=== PATIENT | female | born 1975 | race Caucasian/White ===

== ENCOUNTER 2021-08-07 14:42 | Emergency (ER) | payer MEDICAID, OTHER ==
[~2021-08-07] VITALS: Ht 157.5 cm; Wt 56.2 kg
[2021-08-07 14:56] VITALS: BP 181/108
--- NOTE | 2021-08-07 15:02 | NUR ---
PT TO LOBBY.
[2021-08-07] MEDS ORDERED: CYCLOBENZAPRINE 10 MG TAB PO ONE (15:10)
[2021-08-07] MEDS ORDERED: KETOROLAC 30 MG/ML VIAL IM ONE (15:10)
[2021-08-07] MEDS ORDERED: NAPR-54 PO (15:55)
[2021-08-07] MEDS ORDERED: CYCL-711 PO (15:55)
--- NOTE | 2021-08-07 16:10 | NUR ---
Patient discharged with v/s stable. Written and verbal after care instructions given and explained. Patient verbalized understanding. Ambulatory with steady gait. All questions addressed prior to discharge. Advised to follow up with PMD.
== END 2021-08-07 16:10 | disposition home or self-care (01) ==
LOC: MED 14:42
DX: M25.511 Pain in right shoulder (principal); V89.2XXA Person injured in unspecified motor-vehicle accident, traffic, initial encounter; Y93.89 Activity, other specified; Y92.488 Other paved roadways as the place of occurrence of the external cause; Y99.8 Other external cause status
CPT/HCPCS: 71045; 96372; 99283; J1885

== ENCOUNTER 2023-01-09 20:17 | Emergency (ER) | payer BC, OTHER ==
[~2023-01-09] VITALS: Ht 157.5 cm; Wt 59.0 kg
[~2023-01-09 20:17] MED LIST: CYCL-711 PO; NAPR-54 PO
[2023-01-09 20:37] VITALS: BP 152/77; PULSE 68; RESP 16; TEMP 97.6; O2SAT 99
--- NOTE | 2023-01-09 20:48 | NUR ---
TO BED 12 FOLLOWING TRIAGE AFTER OBTAINING UA
[2023-01-09] MEDS ORDERED: HYDROcodone/APAP 5/325 MG 1 TAB TAB PO ONE (23:15)
[2023-01-09 23:39] LABS: BASOPHILS % (AUTO) 0.6 % (0.0-2.0); EOSINOPHILS # (AUTO) 0.2 K/uL (0-0.4); EOSINOPHILS % (AUTO) 2.3 % (0.0-4.0); HEMATOCRIT 39.9 % (36-48); HEMOGLOBIN 13.7 g/dL (12.0-16.0); LYMPHOCYTES # (AUTO) 1.4 K/uL (2.5-16.5); LYMPHOCYTES % (AUTO) 20.3 % (20.5-51.1); MEAN CORPUSCULAR HEMOGLOBIN 29 pg (27-31); MEAN CORPUSCULAR HGB CONC 34 g/dL (33-37); MEAN CORPUSCULAR VOLUME 85.3 fL (80-94); MONOCYTES # (AUTO) 0.6 K/uL (0.8-1.0); MONOCYTES % (AUTO) 7.7 % (1.7-9.3); NEUTROPHILS # (AUTO) 4.9 K/uL (1.8-7.7); NEUTROPHILS % (AUTO) 69.1 % (42.2-75.2); PLATELET COUNT (AUTO) 262 K/uL (140-450); RED BLOOD CELL COUNT(AUTO) 4.68 MIL/uL (4.20-5.40); RED CELL DISTRIBUTION WIDTH 13.5 % (11.6-13.7); WHITE BLOOD COUNT (AUTO) 7.1 K/uL (4.8-10.8)
[2023-01-09 23:41] LABS: APPEARANCE,URINE CLEAR (CLEAR); BILIRUBIN,URINE NEGATIVE (NEGATIVE); BLOOD, URINE 2+ (NEGATIVE); COLOR,URINE YELLOW (YELLOW); LEUKOCYTE ESTERASE ,URINE NEGATIVE (NEGATIVE); NITRITE, URINE NEGATIVE (NEGATIVE); PH,URINE 6.5 (5.0-9.0); UGLUCOSE NEGATIVE (NEGATIVE)
[2023-01-10 00:07] LABS: ALBUMIN 4.2 g/dL (3.4-5.0); ANION GAP 13.3 (8-16); CARBON DIOXIDE 27.5 mmol/L (21-32); CREATININE 0.7 mg/dL (0.6-1.3); POTASSIUM 3.8 mmol/L (3.5-5.1); TOTAL BILIRUBIN 0.4 mg/dL (0.0-1.0)
[2023-01-10] MEDS ORDERED: ACET-10509 PO (01:39)
[2023-01-10] MEDS ORDERED: IBUP-2213 PO (01:39)
--- NOTE | 2023-01-10 01:46 | NUR ---
Patient discharged with v/s stable. Written and verbal after care instructions given and explained. Patient verbalized understanding. New RX of ibuprofen and acetaminophen. Ambulatory with steady gait. All questions addressed prior to discharge. Advised to follow up with PMD.
[2023-01-10 01:50] VITALS: BP 153/74; PULSE 64; RESP 16; TEMP 97.6; O2SAT 99
== END 2023-01-10 01:46 | disposition home or self-care (01) ==
LOC: MED 20:17
DX: R10.11 Right upper quadrant pain (principal); R11.0 Nausea; Z79.899 Other long term (current) drug therapy
CPT/HCPCS: 36415; 76705; 80053; 81001; 83605; 83690; 85025; 87040; 87086; 99284; Q0092